=== PATIENT | female | born 1980 | race Caucasian/White ===

== ENCOUNTER 2019-01-21 23:23 | Emergency (ER) | payer OTHER ==
[~2019-01-21] VITALS: Ht 154.9 cm; Wt 59.0 kg
[~2019-01-21 23:23] MED LIST: CORTEF20 MG PO; FLORINEF ACETA0.1 MG PO; LIPITOR20 MG PO
== END 2019-01-22 07:29 | disposition home or self-care (01) ==
LOC: ER 23:23
DX: E86.0 Dehydration (principal); R06.02 Shortness of breath; R50.9 Fever, unspecified

== ENCOUNTER 2022-08-21 19:27 | Emergency (ER) | payer OTHER ==
[~2022-08-21] VITALS: Ht 157.5 cm; Wt 59.0 kg
== END 2022-08-21 22:59 | disposition home or self-care (01) ==
LOC: ER 19:27
DX: S93.491A Sprain of other ligament of right ankle, initial encounter (principal); W10.8XXA Fall (on) (from) other stairs and steps, initial encounter; Y93.9 Activity, unspecified; Y92.018 Other place in single-family (private) house as the place of occurrence of the external cause; Y99.9 Unspecified external cause status; Z88.8 Allergy status to other drugs, medicaments and biological substances

== ENCOUNTER 2022-10-31 10:58 | Outpatient (CLI) | payer OTHER | END 2022-10-31 10:59 | disposition home or self-care (01) | LOC: LAB 10:58 | PROVIDERS: ATTEND Internal Medicine | DX: Z01.818 Encounter for other preprocedural examination (principal); D64.9 Anemia, unspecified; N39.0 Urinary tract infection, site not specified; E11.9 Type 2 diabetes mellitus without complications; E24.9 Cushing's syndrome, unspecified; R05.8 Other specified cough; R07.89 Other chest pain ==

== ENCOUNTER 2022-11-23 15:21 | Outpatient (CLI) | payer OTHER ==
[~2022-11-23 15:21] MED LIST changes: +CORTEF PO; +FLUDROCORTISONE PO
[2022-11-23 16:06] LABS: PH,URINE 5.5 (5.0-8.0); URINE APPEARANCE Cloudy; URINE BILIRRUBIN Negative (NEGATIVE); URINE BLOOD Large; URINE COLOR Yellow; URINE LEUKOCYTE Moderate; URINE NITRATE Negative
[2022-11-23 16:08] LABS: URINE BACTERIA 929.7 uL (0.0-1933); URINE EPITHELIAL CELLS 10.8 uL (0.0-38.8); URINE RBC 101.4 uL (0.0-20.8); URINE WBC 829.8 uL (0.0-23.2)
[2022-11-23 16:11] LABS: URINE GLUCOSE 100 MG/DL (NEGATIVE); URINE PROTEIN 100 (NEGATIVE)
[2022-11-23 16:14] LABS: HEMATOCRIT 39.5 % (36.0-45.00); MEAN CELL VOLUME 85.3 fL (80.00-100.00); MEAN CORPUSCULAR HEMOGLOBIN 28.1 pg (27.00-32.0); MEAN CORPUSCULAR HGB CONC 32.9 g/dl (32.0-36.0); PLATELET COUNT 337 K/uL (150-450); RED BLOOD COUNT 4.63 M/uL (4.00-6.00)
== END 2022-11-23 15:27 | disposition home or self-care (01) ==
LOC: LAB 15:21
PROVIDERS: ATTEND Obstetrics & Gynecology Maternal & Fetal Medicine
DX: D64.9 Anemia, unspecified (principal); N30.00 Acute cystitis without hematuria

== ENCOUNTER 2022-11-24 11:19 | Inpatient (IN) | payer OTHER ==
[~2022-11-24] VITALS: Ht 61 cm; Wt 59.0 kg
[2022-11-24 12:40] LABS: HEMATOCRIT 36.4 % (36.0-45.00); HEMOGLOBIN 12.5 g/dL (12.0-15.00); MEAN CELL VOLUME 83.1 fL (80.00-100.00); MEAN CORPUSCULAR HEMOGLOBIN 28.4 pg (27.00-32.0); MEAN CORPUSCULAR HGB CONC 34.2 g/dl (32.0-36.0); PLATELET COUNT 301 K/uL (150-450); RED BLOOD COUNT 4.38 M/uL (4.00-6.00); RED CELL DISTRIBUTION WIDTH 13.1 % (11.5-14.5)
[2022-11-24 13:09] LABS: ALBUMIN 3.2 gm/dL (3.4-5.0); BILIRUBIN TOTAL 0.66 mg/dL (0.3-1.2); CALCIUM 8.9 mg/dL (8.5-10.1); CREATININE SERUM 0.96 mg/dL (0.55-1.02); GFR 64.05; GLOBULINA 4.4 G/DL (2.4-3.5); POTASSIUM 3.73 mEq/L (3.5-5.1); TOTAL PROTEIN 7.6 gm/dL (6.4-8.2)
[2022-11-24 14:30] LABS: HEMATOCRIT 37.4 % (36.0-45.00); MEAN CELL VOLUME 84.2 fL (80.00-100.00); PLATELET COUNT 311 K/uL (150-450); RED BLOOD COUNT 4.43 M/uL (4.00-6.00); RED CELL DISTRIBUTION WIDTH 12.9 % (11.5-14.5)
[2022-11-24 14:43] LABS: ERYTHROCYTE SEDIMENTATION RATE > 130 mm/hr
[2022-11-24 15:22] LABS: ALBUMIN 3.2 gm/dL (3.4-5.0); BILIRUBIN TOTAL 0.66 mg/dL (0.3-1.2); C-REACTIVE PROTEIN 26.5 MG/DL (0.00-0.29); CALCIUM 8.9 mg/dL (8.5-10.1); CREATININE SERUM 0.87 mg/dL (0.55-1.02); GFR 71.75; GLOBULINA 4.4 G/DL (2.4-3.5); PHOSPHOROUS 2.8 mg/dL (2.5-4.9); POTASSIUM 3.65 mEq/L (3.5-5.1); TOTAL PROTEIN 7.6 gm/dL (6.4-8.2)
[2022-11-25 01:00] LABS: URINE APPEARANCE Clear; URINE BILIRRUBIN Negative (NEGATIVE); URINE BLOOD Moderate; URINE COLOR Yellow; URINE GLUCOSE Negative (NEGATIVE); URINE LEUKOCYTE Moderate; URINE NITRATE Negative; URINE PROTEIN 30 (NEGATIVE); URINE UROBILINOGEN 0.2 E.U./dl
[2022-11-25 01:03] LABS: URINE BACTERIA 569.3 uL (0.0-1933); URINE EPITHELIAL CELLS 7.2 uL (0.0-38.8); URINE WBC 709.2 uL (0.0-23.2)
[2022-11-25 05:47] LABS: HEMATOCRIT 33.8 % (36.0-45.00); HEMOGLOBIN 10.9 g/dL (12.0-15.00); MEAN CELL VOLUME 84.4 fL (80.00-100.00); MEAN CORPUSCULAR HEMOGLOBIN 27.2 pg (27.00-32.0); MEAN CORPUSCULAR HGB CONC 32.2 g/dl (32.0-36.0); PLATELET COUNT 277 K/uL (150-450); RED CELL DISTRIBUTION WIDTH 12.6 % (11.5-14.5)
[2022-11-25 06:05] LABS: ALBUMIN 2.7 gm/dL (3.4-5.0); BILIRUBIN TOTAL 0.36 mg/dL (0.3-1.2); CALCIUM 8.9 mg/dL (8.5-10.1); CREATININE SERUM 0.78 mg/dL (0.55-1.02); GFR 81.39; GLOBULINA 3.9 G/DL (2.4-3.5); POTASSIUM 3.91 mEq/L (3.5-5.1); TOTAL PROTEIN 6.6 gm/dL (6.4-8.2)
[2022-11-26 07:24] LABS: HEMATOCRIT 30.8 % (36.0-45.00); HEMOGLOBIN 10.5 g/dL (12.0-15.00); MEAN CELL VOLUME 84.2 fL (80.00-100.00); MEAN CORPUSCULAR HEMOGLOBIN 28.8 pg (27.00-32.0); MEAN CORPUSCULAR HGB CONC 34.1 g/dl (32.0-36.0); PLATELET COUNT 312 K/uL (150-450); RED BLOOD COUNT 3.65 M/uL (4.00-6.00)
== END 2022-11-30 09:53 | disposition home or self-care (01) | DRG 690 ==
LOC: OB/GYN 11:19
PROVIDERS: Internal Medicine; ADMIT Obstetrics & Gynecology Maternal & Fetal Medicine; ATTEND Obstetrics & Gynecology Maternal & Fetal Medicine
PROC: BW21YZZ Computerized Tomography (CT Scan) of Abdomen and Pelvis using Other Contrast (ICD-10-PCS; principal; 2022-11-24)
DX: N12 Tubulo-interstitial nephritis, not specified as acute or chronic (principal); R50.9 Fever, unspecified; Z20.822 Contact with and (suspected) exposure to COVID-19